=== PATIENT | male | born 1960 | race African-American/Black ===

== ENCOUNTER → 2016-10-24 | Day surgery (SDC) | payer BC ==
[2016-10-07 14:59] VITALS: Ht 180.3 cm; Wt 90.9 kg
[~2016-10-24] VITALS: Ht 180.3 cm; Wt 90.9 kg
[~2016-10-24] MED LIST: ALBU18002 INH; ASPCH81X PO; ASPI-589 PO; IOPAMIDOL INJ 61% 15 ML VIAL ONE; LIDOCAINE HCL 1% MPF 5 ML VIAL ONE; LOSA50TA6 PO; METO25TA56 PO; OMEP20TA PO; QVRINH40 INH; ROSU20TA PO; RXC5 PO; SODIUM CHLORIDE 0.9% INJ 10 ML VIAL ONE; TPRSR/25 PO
--- NOTE | 2016-10-24 12:58 | History & Physical Bridge - [place] ---
H&P Re-Evaluation Bridge Note: I have examined the patient, reviewed the History & Physical and in the interval since the performance of the History & Physical I have noted the following changes of clinical significance: No changes noted
--- NOTE | 2016-10-24 13:29 | Discharge Instructions ---
Discharge Instructions Date of Service Oct 24, 2016. Visit Reason for Visit: Lumbar Radiculopathy Discharge Discharge Diagnosis / Problem: right leg pain Discharge Goals Goal(s): Decrease discomfort, Improve function Medications Stopped Medications Name(s): Stopped aspirin 10/21/2016 Activity Recommendations Activity Limitations: resume your previous activity Anesthesia . Post Anesthesia Instructions: If you have had General Anesthesia or IV Sedation: * Do not drive today. * Resume driving when surgeon permits. * Do not make important decisions or sign legal documents today. * Call surgeon for: 1. Temperature elevations greater than 101 degrees F. 2. Uncontrollable pain. 3. Excessive bleeding. 4. Persistent nausea and vomiting. 5. Medication intolerance (nausea, vomiting or rash). * For nausea and vomiting use only clear liquids such as: tea, soda, bouillon until nausea subsides, then gradually increase diet as tolerated. * If you have any concerns or questions, call your surgeon's office. If physician is unavailable and it is an emergency, call 911 or go to the nearest emergency room. . Diet Recommendations Recommended Home Diet: resume previous diet Procedures Procedures Performed: Lumbar Epidural Steroid Injection Pending Studies Studies pending at discharge: no Medical Emergencies . Who to Call and When: Medical Emergencies: If at any time you feel your situation is an emergency, please call 911 immediately. . Non-Emergent Contact Non-Emergency issues call your: Specialist . . "Provider Documentation" section prepared by Yuri Marr.
[2016-10-24 13:34] VITALS: BP 120/68; PULSE 58; TEMP 36.8; O2SAT 96
--- NOTE | 2016-10-24 13:42 | OPERATIVE REPORT ---
DATE OF OPERATION: 10/24/2016 PREOPERATIVE DIAGNOSIS: Lumbar stenosis with a right L5 radiculopathy. POSTOPERATIVE DIAGNOSIS: Same. PROCEDURE: Right paramedian L5-S1 intralaminar epidural steroid injection under fluoroscopic guidance. INDICATIONS: The patient is a 56-year-old -[place]oven[place] male who presents today for a lumbar epidural steroid injection. He has responded favorably to the interlaminar approaches for a number of years. Most recently he had a caudal approach that was done because did not want to stop the antiplatelet therapy as he was less than 6 months out of significant heart attack, myocardial infarction, but noted that he got no improvement with the caudal. Now, he is greater than 6 months out and we will hold the aspirin for 3 days and do the back to the intralaminar approach, which has been historically successful for him. PHYSICAL EXAMINATION: Pleasant male seated comfortably. He has no tenderness to palpation of his lumbar paraspinal muscles. No issues with forward flexion or extension. Normal lower extremity strength. Negative seated straight leg raises. CONSENT: Verbal and written consent was obtained from the patient. Risks and benefits were reviewed. Risks include, but are not limited to epidural abscess, epidural hematoma, allergic reaction, dural puncture. The patient wishes to proceed. PROCEDURE: The patient was taken back to the special procedures room of [facility] where he was maintained in a prone position. Backside was cleansed with Betadine x3 and a dry sterile dressing was applied. Fluoroscope was used to identify the L5-S1 intralaminar space and overlying skin was anesthetized with a 25 gauge 1.5-inch needle with 4 mL of lidocaine 1%. He then underwent placement of a 22 gauge 3-1/2 inch Tuohy needle which was directed down towards the intralaminar space. It was advanced under lateral fluoroscopic guidance and loss of resistance was noted at a depth of 7 cm. Isovue-300 contrast 1 mL was injected in which demonstrated epidural uptake pattern. This was confirmed with both AP and lateral views. He then underwent injection after negative aspiration of 40 mg of Depo-Medrol and 4 mL of preservative free sodium chloride. Injection was well tolerated. DISPOSITION: 1. The patient was taken out into the discharge recovery area where he will be discharged home once discharge criteria have been met. 2. Follow up in the [facility] office in 2-4 weeks. I attest to the content of the Intraoperative Record and any orders documented therein. Any exceptio ns are noted below.
== END | disposition home or self-care (01) ==
LOC: X.SURG 12:09
PROVIDERS: ATTEND Physical Medicine & Rehabilitation
DX: M48.06 Spinal stenosis, lumbar region (principal); M54.16 Radiculopathy, lumbar region; Z79.82 Long term (current) use of aspirin

== ENCOUNTER → 2017-02-20 | Day surgery (SDC) | payer BC ==
[2017-01-30 15:33] VITALS: Ht 180.3 cm; Wt 90.9 kg
[~2017-02-20] VITALS: Ht 180.3 cm; Wt 90.9 kg
[~2017-02-20] MED LIST changes: -RXC5 PO
[2017-02-20 15:25] VITALS: TEMP 36.7
--- NOTE | 2017-02-20 15:26 | Discharge Instructions ---
Discharge Instructions Date of Service Feb 20, 2017. Visit Reason for Visit: Lumbar Radiculopathy Discharge Discharge Diagnosis / Problem: right leg pain Discharge Goals Goal(s): Decrease discomfort, Improve function Medications Stopped Medications Name(s): daily asa stopped 1 week ago. Activity Recommendations Activity Limitations: resume your previous activity Anesthesia . Post Anesthesia Instructions: If you have had General Anesthesia or IV Sedation: * Do not drive today. * Resume driving when surgeon permits. * Do not make important decisions or sign legal documents today. * Call surgeon for: 1. Temperature elevations greater than 101 degrees F. 2. Uncontrollable pain. 3. Excessive bleeding. 4. Persistent nausea and vomiting. 5. Medication intolerance (nausea, vomiting or rash). * For nausea and vomiting use only clear liquids such as: tea, soda, bouillon until nausea subsides, then gradually increase diet as tolerated. * If you have any concerns or questions, call your surgeon's office. If physician is unavailable and it is an emergency, call 911 or go to the nearest emergency room. . Diet Recommendations Recommended Home Diet: resume previous diet Procedures Procedures Performed: LUMBAR EPIDURAL STEROID INJECTION Pending Studies Studies pending at discharge: no Medical Emergencies . Who to Call and When: Medical Emergencies: If at any time you feel your situation is an emergency, please call 911 immediately. . Non-Emergent Contact Non-Emergency issues call your: Specialist . . "Provider Documentation" section prepared by Yuri Marr. .
[2017-02-20 15:31] VITALS: BP 115/77; PULSE 59; O2SAT 97
--- NOTE | 2017-02-21 07:08 | OPERATIVE REPORT ---
DATE OF OPERATION: 02/20/2017 PREOPERATIVE DIAGNOSIS: Lumbar stenosis with right L5 radiculopathy. POSTOPERATIVE DIAGNOSIS: Same. PROCEDURE: Right paramedian L5-S1 intralaminar epidural steroid injection under fluoroscopic guidance. INDICATIONS FOR PROCEDURE: The patient is a 56-year-old -Pakistani male who presents today for an epidural injection. He has received them in the past with good benefit. He presents today to address ongoing radicular pain down the right leg. PHYSICAL EXAMINATION: Pleasant male seated comfortably in no apparent distress. He has no focal weakness. Intact sensation. Negative seated straight leg raises. CONSENT: Verbal and written consent was obtained from the patient. Risks and benefits were reviewed. Risks include, but are not limited to epidural abscess, epidural hematoma, allergic reaction, and dural puncture. The patient wishes to proceed. DESCRIPTION OF PROCEDURE: The patient was taken back to the special procedures room of [facility], where he was maintained in a prone position. Backside was cleansed with Betadine x3 and a dry sterile dressing was applied. Fluoroscope was used to identify the L5-S1 intralaminar space and overlying skin on the right side was anesthetized with 4 mL of lidocaine 1% with a 25-gauge 1-1/2 inch needle. A 22-gauge 3-1/2 inch Tuohy needle was then directed down towards the intralaminar space. It was advanced under lateral fluoroscopic guidance and loss of resistance was noted at a depth of just over 7 cm. Isovue-300 contrast 1 mL was injected, which demonstrated epidural uptake pattern. He then underwent injection after negative aspiration of 40 mg of Depo-Medrol and 4 mL of preservative free sodium chloride. Injection was well tolerated. DISPOSITION: 1. The patient was taken out into the discharge recovery area, where he will be discharged home once discharge criteria have been met. 2. Follow up in the [facility] office in 2-4 weeks. I attest to the content of the Intraoperative Record and any orders documented therein. Any exception s are noted below.
== END | disposition home or self-care (01) ==
LOC: X.SURG 14:08
PROVIDERS: ATTEND Physical Medicine & Rehabilitation
DX: M48.06 Spinal stenosis, lumbar region (principal); M54.16 Radiculopathy, lumbar region

== ENCOUNTER 2017-10-17 10:38 | Emergency (ER) | payer BC ==
[~2017-10-17] VITALS: Ht 180.3 cm; Wt 102.6 kg
[~2017-10-17 10:38] MED LIST changes: -ASPCH81X PO; -IOPAMIDOL INJ 61% 15 ML VIAL ONE; -LIDOCAINE HCL 1% MPF 5 ML VIAL ONE; +RXC5 PO; -SODIUM CHLORIDE 0.9% INJ 10 ML VIAL ONE; -TPRSR/25 PO
[2017-10-17 10:39] VITALS: TEMP 36.7; Ht 180.3 cm; Wt 102.6 kg
[2017-10-17] MEDS ORDERED: OXYCODONE HCL IR 5 MG TAB (IMMEDIATE RELEASE) PO STA (10:51)
--- NOTE | 2017-10-17 11:27 | DIAGNOSTIC IMAGING REPORT ---
CERVICAL SPINE CT CT DOSE: 382.08 mGy.cm HISTORY: Fall, neck pain TECHNIQUE: Multiaxial CT images of the cervical spine were performed and reformatted in the sagittal and coronal plane without the use of contrast. A dose lowering technique was utilized adhering to the principles of ALARA. COMPARISON: None. FINDINGS: Straightening of the cervical spine. No fracture or subluxation. Anterior cervical discectomy and fusion at C3-C5 with a C4 corpectomy and bone graft. The hardware appears intact. Moderate facet osteoarthritis seen within the left C3-C5 facets and a right C6-C7 facets. Prevertebral soft tissues and the C1-C2 interval are intact. Moderate disc space narrowing at C5-C6 and severe disc space narrowing at C6-C7 with endplate osteophytes. There is moderate central canal narrowing at C6-C7 due to the disc osteophyte complex. IMPRESSION: 1. No fractures within the cervical spine. 2. Postoperative and degenerative changes as described above. Electronically signed by: Joe West M.D. 10/17/2017 11:26 AM Dictated Date/Time: 10/17/2017 11:17 AM
--- NOTE | 2017-10-17 11:58 | DIAGNOSTIC IMAGING REPORT ---
AP PELVIS AND RIGHT HIP 3 VIEWS CLINICAL HISTORY: Right hip pain status post trauma COMPARISON STUDY: No previous studies for comparison. FINDINGS: No fractures or dislocations are visualized. The joint space of each hip appears relatively well preserved for age. IMPRESSION: No fractures or dislocations identified. Electronically signed by: Leonid Chin M.D. 10/17/2017 11:57 AM Dictated Date/Time: 10/17/2017 11:57 AM
--- NOTE | 2017-10-17 12:05 | EMERGENCY ROOM VISIT NOTE ---
History First contact with patient: 10:45 Chief Complaint: NECK PAIN Stated Complaint: NECK PAIN, HIP PAIN History of Present Illness The patient is a 57 year old male who presents to the Emergency Room via private vehicle with complaints of "neck pain, hip pain". The patient states that this past Friday he was outside of his house, and slipped on the ice landing on his right hip. He notes pain as well in the neck. He rates the overall pain as a 9/10. He has a history of recent neck surgery. He states it is painful to walk. He denies any abdominal pain or chest pain. He notes some tingly sensation into the superior trapezius muscle within the right shoulder. He denies striking his head or head pain. Review of Systems A complete 6-point Review of Systems was discussed with the patient, with pertinent positives and negatives listed in the History of Present Illness. All remaining Review of Systems questions can be considered negative unless otherwise specified. Past Medical/Surgical History Medical Problems: (1) Back pain (2) Cervical stenosis of spinal canal (3) Chest pain Social History Smoking Status: Former Smoker Drug Use: none Marital Status: Housing Status: lives with family Occupation Status: disabled Current/Historical Medications Scheduled Aspirin (Aspirin Adult Low Dose), 81 MG PO QAM Beclomethasone Dip (Qvar), 1 PUFF INH HS Losartan Potassium (Cozaar), 50 MG PO QAM Metoprolol Tartrate (Lopressor) (Lopressor), 25 MG PO BID Omeprazole (Omeprazole), 20 MG PO QAM Rosuvastatin Calcium (Crestor), 20 MG PO QAM Scheduled PRN Albuterol Sulfate (Proair Respiclick), 1-2 PUFF INH DIRECTED PRN for Shortness of Breath Oxycodone Ir (Roxicodone Ir), 1-2 TAB PO Q4H PRN for Pain Physical Exam Vital Signs Date Time Temp Pulse Resp B/P (MAP) Pulse Ox O2 Delivery O2 Flow Rate FiO2 10/17/17 13:18 86 19 152/91 97 10/17/17 12:20 84 18 148/84 97 Room Air 10/17/17 10:39 36.7 78 18 174/97 96 Room Air Physical Exam VITAL SIGNS - Vital signs and nursing notes were reviewed. Stable. GENERAL - 57-year-old male appearing his stated age who is in no acute distress. Communicates well with provider and answers questions appropriately. SKIN - Without rashes. No breaks in integument. HEAD - NC/AT. EYES - Sclera anicteric. EARS - No deformities of external structures noted on gross examination bilaterally. NOSE - Midline and without cyanosis. No epistaxis or purulent drainage noted. MOUTH/OROPHARYNX - Without perioral cyanosis. NECK - Neck with limited range of motion secondary to pain. There is direct C- spine tenderness and right paraspinous musculature tenderness. EXTREMITIES - No clubbing or peripheral cyanosis. No pretibial edema present. There is tenderness palpation overlying the right superior trapezius muscle. Also direct right greater trochanter tenderness. +5/5 strength noted in UE/LE bilaterally. NEUROLOGIC - Cranial nerves II through XII grossly intact. Sensory intact to light touch throughout. PSYCH - A&O, and cooperates fully with examiner. Pt is very pleasant and interacts well with examiner. Medical Decision & Procedures ER Provider Diagnostic Interpretation: AP PELVIS AND RIGHT HIP 3 VIEWS CLINICAL HISTORY: Right hip pain status post trauma COMPARISON STUDY: No previous studies for comparison. FINDINGS: No fractures or dislocations are visualized. The joint space of each hip appears relatively well preserved for age. IMPRESSION: No fractures or dislocations identified. Electronically signed by: Leonid Chin M.D. 10/17/2017 11:57 AM Dictated Date/Time: 10/17/2017 11:[address] DOSE: 382.08 mGy.cm HISTORY: Fall, neck pain TECHNIQUE: Multiaxial CT images of the cervical spine were performed and reformatted in the sagittal and coronal plane without the use of contrast. A dose lowering technique was utilized adhering to the principles of ALARA. COMPARISON: None. FINDINGS: Straightening of the cervical spine. No fracture or subluxation. Anterior cervical discectomy and fusion at C3-C5 with a C4 corpectomy and bone graft. The hardware appears intact. Moderate facet osteoarthritis seen within the left C3-C5 facets and a right C6-C7 facets. Prevertebral soft tissues and the C1-C2 interval are intact. Moderate disc space narrowing at C5-C6 and severe disc space narrowing at C6-C7 with endplate osteophytes. There is moderate central canal narrowing at C6-C7 due to the disc osteophyte complex. IMPRESSION: 1. No fractures within the cervical spine. 2. Postoperative and degenerative changes as described above. Electronically signed by: Joe West M.D. 10/17/2017 11:26 AM Dictated Date/Time: 10/17/2017 11:17 AM Medications Administered Medications (Trade) Dose Ordered Sig/Roney Route Start Time Stop Time Status Last Admin Dose Admin Oxycodone HCl (Roxicodone Immediate Rel Tab) 5 mg NOW STAT PO 10/17/17 10:51 10/17/17 10:52 DC 10/17/17 10:57 5 MG Medical Decision Patient was seen and evaluated as above. He presents to us today status post fall. He has neck pain and right hip pain. Review was performed of nursing notes and vital signs. After obtaining a thorough history and physical examination the above work up was performed. He was given oxycodone for pain, and CT scan was performed of his C-spine and x-ray of the right hip. Results as above. No acute fracture or dislocation. He was informed upon the results as we went through these together. I suspect contusion of these regions. He is to wear his C-spine collar at home and follow with his family doctor as well as orthopedic specialist. He is to return with worsening. Small prescription was given of oxycodone for pain and no red flags were identified in the [place] drug monitoring system. The patient was educated upon management, had questions answered prior to discharge, and was discharged home in good condition. In the evaluation and treatment of this patient, the following differential diagnoses were considered: Musculoskeletal Strain, Discitis, Cervical Spine Fracture, Cervical Spine Dislocation, Cervical Spine Subluxation, Cervical Spondylosis, Fibromyalgia, Osteoarthritis, Polymyalgia Rheumatica, Psychogenic Pain Disorder, Tumor of Soft Tissue or Spine, Hip Fracture, Hip Dislocation, Greater Trochanteric Bursitis, Musculoskeletal Pain, Lumbar Radiculopathy. Impression Primary Impression: Fall Additional Impressions: Hip pain, right Neck pain Departure Information Dispostion Home / Self-Care Condition GOOD Prescriptions Oxycodone Ir (Roxicodone Ir) 5 Mg Tab 1-2 TAB PO Q4H Y for Pain, #15 TAB For Initial Treatment Prov: Houston Cedillo PA-C 10/17/17 Referrals Jagdish Lopez M.D. (PCP) Patient Instructions My [facility] Additional Instructions You have been treated in the Emergency Department for Hip Pain and neck pain. You have received pain medicine in the emergency department which impairs your ability to operate a vehicle. It is illegal for you to drive after receiving these medicines. You have been prescribed Oxy IR to be used for pain control. This is a narcotic medication. You cannot drive or consume alcohol while on this medicine. This medicine should only be used for pain that cannot be controlled with over-the- counter pain medicines. For pain control, you can use the following [id number] medicines: - Regular strength (325mg/tab) Tylenol (acetaminophen) 2 tabs every 4-6 hours as needed. Do not exceed 12 tablets in a 24 hour period. Avoid taking more than 3 grams (3000 mg) of Tylenol per day. This includes any other sources of acetaminophen you may take on a regular basis. - Regular strength (200 mg/tab) Advil (ibuprofen) 1-2 tabs every 4-6 hours as needed. Do not exceed a dose of 3200 mg per day. If this is a recent injury (<24 hrs), ice can be applied to the area of pain for the first 3 days to help decrease pain and inflammation. Ice massages can be performed by freezing water in a paper cup, peeling back the cup to expose the ice and then massaging over the affected area. Return to the Emergency Department if your current symptoms worsen despite treatment course outlined above. Problem Qualifiers
[2017-10-17] MEDS ORDERED: OXYC1TAB3 PO (13:10)
[2017-10-17 13:18] VITALS: BP 152/91; PULSE 86; O2SAT 97
== END 2017-10-17 13:19 | disposition home or self-care (01) ==
LOC: C.EDB 10:41 → C.EDD 13:19
DX: M54.2 Cervicalgia (principal); M25.551 Pain in right hip; W00.0XXA Fall on same level due to ice and snow, initial encounter; M48.02 Spinal stenosis, cervical region; Z98.890 Other specified postprocedural states; Z87.891 Personal history of nicotine dependence; Z79.82 Long term (current) use of aspirin

== ENCOUNTER → 2017-10-30 | Day surgery (SDC) | payer BC ==
[2017-10-27 11:19] VITALS: Ht 180.3 cm; Wt 100.0 kg
[~2017-10-30] VITALS: Ht 180.3 cm; Wt 100.0 kg
[~2017-10-30] MED LIST changes: +IOPAMIDOL INJ 61% 15 ML VIAL ONE; +LIDOCAINE HCL 1% MPF 5 ML VIAL ONE; +OXYC1TAB3 PO; -RXC5 PO; +SODIUM CHLORIDE 0.9% INJ 10 ML VIAL ONE
--- NOTE | 2017-10-30 14:24 | [facility] Post Operative Brief Note ---
Immediate Operative Summary Operative Date Oct 30, 2017. Pre-Operative Diagnosis LUMBAR SPINAL STENOSIS W/ RIGHT CHRONIC LOWER EXTREMITY RADICULOPATHY. Post-Operative Diagnosis SAME Procedure(s) Performed LUMBAR/ CAUDAL EPIDURAL STEROID INJECTION Surgeon DR. Rogelio MARC Program Evaluation Consultant Surgeon(s) None Estimated Blood Loss 0 Findings Consistent with Post-Op Diagnosis Specimens NA Drains None Anesthesia Type Local Complication(s) none Disposition Disposition:
[2017-10-30 14:25] VITALS: TEMP 37
--- NOTE | 2017-10-30 14:26 | Discharge Instructions ---
Discharge Instructions Date of Service Oct 30, 2017. Visit Reason for Visit: Lumbar Spinal Stenosis With Chronic Right Lower Ex Discharge Discharge Diagnosis / Problem: Right leg pain Discharge Goals Goal(s): Decrease discomfort, Improve function Medications Stopped Medications Name(s): motrin stopped 10-27-17 Activity Recommendations Activity Limitations: resume your previous activity Anesthesia . Post Anesthesia Instructions: If you have had General Anesthesia or IV Sedation: * Do not drive today. * Resume driving when surgeon permits. * Do not make important decisions or sign legal documents today. * Call surgeon for: 1. Temperature elevations greater than 101 degrees F. 2. Uncontrollable pain. 3. Excessive bleeding. 4. Persistent nausea and vomiting. 5. Medication intolerance (nausea, vomiting or rash). * For nausea and vomiting use only clear liquids such as: tea, soda, bouillon until nausea subsides, then gradually increase diet as tolerated. * If you have any concerns or questions, call your surgeon's office. If physician is unavailable and it is an emergency, call 911 or go to the nearest emergency room. . Diet Recommendations Recommended Home Diet: resume previous diet Procedures Procedures Performed: LUMBAR/ CAUDAL EPIDURAL STEROID INJECTION Pending Studies Studies pending at discharge: no Medical Emergencies . Who to Call and When: Medical Emergencies: If at any time you feel your situation is an emergency, please call 911 immediately. . Non-Emergent Contact Non-Emergency issues call your: Specialist . . "Provider Documentation" section prepared by Yuri Marr. .
[2017-10-30 14:45] VITALS: BP 142/91; PULSE 62; O2SAT 95
--- NOTE | 2017-10-30 18:56 | OPERATIVE REPORT ---
DATE OF OPERATION: 10/30/2017 PREOPERATIVE DIAGNOSIS: Lumbar spinal stenosis with chronic L5 radiculopathy. POSTOPERATIVE DIAGNOSIS: Same. PROCEDURE: Caudal epidural steroid injection under fluoroscopic guidance. INDICATIONS: The patient is a 57-year-old -[place]is[place] male who receives epidurals with good results. His last one was January 2017. He is having an increasing radicular pain. He presents today for an epidural. Unfortunately, he did not stop his Advil and decision will be made via caudal approach today because of potential bleeding effects. PHYSICAL EXAMINATION: Pleasant male seated comfortably. Lower extremities were examined. He had normal lower extremity strength, some pain inhibition with straight leg testing of his right lower extremity, intact sensation t L4 decreased at L5 and intact at S1. CONSENT: Verbal and written consent was obtained from the patient. Risks and benefits were reviewed. Risks include but are not limited to epidural abscess, epidural hematoma, allergic reaction, dural puncture. The patient wishes to proceed. DESCRIPTION OF PROCEDURE: The patient was taken back to the special procedures room of the [facility] where he was maintained in a prone position. Backside was cleansed with Betadine x3 and a dry sterile dressing was applied. Fluoroscope was used to identify the sacral canal and the sacral hiatus space and overlying skin was anesthetized with 4 mL of lidocaine 1% with 25 gauge 1.5-inch needle. A 25 gauge 3.5 inch spinal needle was then directed into the sacral hiatus area. It was advanced until it entered the sacral canal. It was advanced and a total of an inch into the canal. He then underwent injection after negative aspiration of 40 mg of Depo-Medrol, 4 mL of preservative free sodium chloride. Injection was well tolerated. DISPOSITION: 1. He was taken out into the discharge recovery area where he will be discharged home once discharge criteria are met. 2. Follow up in the [facility] office in 4 weeks' time. I attest to the content of the Intraoperative Record and any orders documented therein. Any exception s are noted below.
== END | disposition home or self-care (01) ==
LOC: X.SURG 13:20
PROVIDERS: ATTEND Physical Medicine & Rehabilitation
DX: M48.061 Spinal stenosis, lumbar region without neurogenic claudication (principal); M54.16 Radiculopathy, lumbar region; Z88.6 Allergy status to analgesic agent; Z79.899 Other long term (current) drug therapy

== ENCOUNTER → 2018-02-26 | Day surgery (SDC) | payer BC ==
[2018-02-25 16:08] VITALS: Ht 180.3 cm; Wt 100.0 kg
[~2018-02-26] VITALS: Ht 180.3 cm; Wt 100.0 kg
[~2018-02-26] MED LIST changes: +BECL80AE6 INH; +OXYC-90 PO; -OXYC1TAB3 PO; -QVRINH40 INH
--- NOTE | 2018-02-26 13:13 | [facility] Post Operative Brief Note ---
Immediate Operative Summary Operative Date Feb 26, 2018. Pre-Operative Diagnosis Lumbar stenosis with right lower extremity radiculpathy Post-Operative Diagnosis Same Procedure(s) Performed Caudal Epidural Steroid Injection Surgeon Dr Marr [employer]ener Surgeon(s) None Estimated Blood Loss 0 Findings Consistent with Post-Op Diagnosis Specimens NA Drains None Anesthesia Type Local Complication(s) none Disposition Disposition:
--- NOTE | 2018-02-26 13:14 | Discharge Instructions ---
Discharge Instructions Date of Service Feb 26, 2018. Visit Reason for Visit: Lumbar Radiculopathy, Spinal Stenosis Discharge Discharge Diagnosis / Problem: Right leg pain Discharge Goals Goal(s): Decrease discomfort, Improve function Medications Stopped Medications Name(s): aspirin stopped 02/24 Activity Recommendations Activity Limitations: resume your previous activity Anesthesia . Post Anesthesia Instructions: If you have had General Anesthesia or IV Sedation: * Do not drive today. * Resume driving when surgeon permits. * Do not make important decisions or sign legal documents today. * Call surgeon for: 1. Temperature elevations greater than 101 degrees F. 2. Uncontrollable pain. 3. Excessive bleeding. 4. Persistent nausea and vomiting. 5. Medication intolerance (nausea, vomiting or rash). * For nausea and vomiting use only clear liquids such as: tea, soda, bouillon until nausea subsides, then gradually increase diet as tolerated. * If you have any concerns or questions, call your surgeon's office. If physician is unavailable and it is an emergency, call 911 or go to the nearest emergency room. . Diet Recommendations Recommended Home Diet: resume previous diet Procedures Procedures Performed: Caudal Epidural Steroid Injection Pending Studies Studies pending at discharge: no Medical Emergencies . Who to Call and When: Medical Emergencies: If at any time you feel your situation is an emergency, please call 911 immediately. . Non-Emergent Contact Non-Emergency issues call your: Specialist . . "Provider Documentation" section prepared by Yuri Marr. .
[2018-02-26 13:15] VITALS: TEMP 36.3
[2018-02-26 13:29] VITALS: BP 123/82; PULSE 55; O2SAT 95
--- NOTE | 2018-02-26 14:45 | OPERATIVE REPORT ---
DATE OF OPERATION: 02/26/2018 PREOPERATIVE DIAGNOSIS: Lumbar stenosis with right lower extremity radiculopathy. POSTOPERATIVE DIAGNOSIS: Lumbar stenosis with right lower extremity radiculopathy. PROCEDURE: Caudal epidural steroid injection under fluoroscopic guidance. INDICATIONS: The patient is a 57-year-old -[place] male who has received epidural injections with great results. Last one was more than 4 months ago. He presents today for another injection to help him with relief of pain. They typically get about 80% efficacy and he was given via the caudal route the last time and that will be the approach today as he took anti-inflammatories daily and today. PHYSICAL EXAMINATION: GENERAL: Pleasant male seated comfortably. MUSCULOSKELETAL: Lumbar paraspinal muscles were palpated. He had negative seated straight leg raise. He has intact sensation distally at the L4, L5, S1 dermatomes. CONSENT: Verbal and written consent was obtained from the patient. Risks and benefits were reviewed. Risks include but are not limited to epidural abscess and allergic reaction. The patient wishes to proceed. DESCRIPTION OF PROCEDURE: The patient was taken back to the special procedures room of [facility]. He was maintained in a prone position. Backside was cleansed with Betadine x3 and a dry sterile dressing was applied. Fluoroscope was used to identify the sacral hiatus and overlying skin was anesthetized with 5 mL of lidocaine 1% with 25-gauge 1.5-inch needle. A 25-gauge 3.5-inch spinal needle was then directed 1/2 inch into the canal. He then underwent injection after negative aspiration with 40 mg of Depo-Medrol and 4 mL of preservative-free sodium chloride. Injection was well tolerated. DISPOSITION: The patient was taken out into the discharge recovery area where he will be discharged home once discharge criteria have been met. Follow up in the [facility] office in 4 weeks' time. I attest to the content of the Intraoperative Record and any orders documented therein. Any exception s are noted below.
== END | disposition home or self-care (01) ==
LOC: X.SURG 12:11
PROVIDERS: ATTEND Physical Medicine & Rehabilitation
DX: M48.061 Spinal stenosis, lumbar region without neurogenic claudication (principal); M54.16 Radiculopathy, lumbar region; Z79.82 Long term (current) use of aspirin; Z79.899 Other long term (current) drug therapy

== ENCOUNTER 2024-04-28 06:07 | Observation (INO) ==
--- NOTE | 2024-03-30 13:24 | PAT Medication Instructions ---
Medication Instructions Date of Service March 30, 2024 Home Medications Medication Instructions Recorded guaifenesin 600 mg tablet, 600 mg PO BID PRN congestion #60 10/30/20 extended release 12 hr (Mucinex) tabs levocetirizine 5 mg tablet 5 mg PO DAILY PRN allergy symptoms 10/30/20 #30 tabs albuterol sulfate 90 mcg/actuation 2 puff inhalation Q6H PRN 02/06/21 aerosol inhaler (Ventolin HFA) Shortness Of Breath Or Wheezing #18 grams fluticasone fur. 100 mcg-umeclid 1 inh inhalation QAM #3 Inhalers 12/08/23 62.5 mcg-vilant 25 mcg inhalat.powder (Trelegy Ellipta) montelukast 10 mg tablet 10 mg PO QAM #90 tabs 01/05/24 (Singulair) losartan 50 mg tablet 50 mg PO QAM #90 tabs 01/06/24 rosuvastatin 20 mg tablet 20 mg PO QAM #90 tabs 01/06/24 Medication List: aspirin 81 mg tablet,delayed release 81 mg PO QAM guaifenesin 600 mg tablet, extended release 12 hr (Mucinex) 600 mg PO BID PRN congestion levocetirizine 5 mg tablet 5 mg PO DAILY PRN allergy symptoms albuterol sulfate 90 mcg/actuation aerosol inhaler (Ventolin HFA) 2 puff inhalation Q6H PRN Shortness Of Breath Or Wheezing cyclobenzaprine 5 mg tablet 5 mg PO DAILY PRN Neck Muscle Spasm metoprolol tartrate 100 mg tablet 100 mg PO QAM insulin glargine 100 unit/mL (3 mL) subcutaneous pen (Carolyn Fox U-100 Insulin) 8 unit subcut QAM fluticasone fur. 100 mcg-umeclid 62.5 mcg-vilant 25 mcg inhalat.powder (Trelegy Ellipta) 1 inh inhalation QAM montelukast 10 mg tablet (Singulair) 10 mg PO QAM losartan 50 mg tablet 50 mg PO QAM rosuvastatin 20 mg tablet 20 mg PO QAM ascorbic acid (vitamin C) 1,000 mg tablet (Vitamin C) 1 g PO QAM cholecalciferol (vitamin D3) 25 mcg (1,000 unit) tablet (Vitamin D3) 25 mcg PO QAM docusate sodium 100 mg tablet (Stool Softener) 100 mg PO QAM gabapentin 300 mg capsule 300 mg PO TID omeprazole 40 mg capsule,delayed release 40 mg PO QAM MEDICATION INSTRUCTIONS: Continue as directed albuterol sulfate 90 mcg/actuation aerosol inhaler (Ventolin HFA) 2 puff inhalation Q6H PRN Shortness Of Breath Or Wheezing (use if needed; BRING TO HOSPITAL) fluticasone fur. 100 mcg-umeclid 62.5 mcg-vilant 25 mcg inhalat.powder (Trelegy Ellipta) 1 inh inhalation QAM ASK your prescriber and surgeon aspirin 81 mg tablet,delayed release 81 mg PO QAM DO NOT take the morning of surgery levocetirizine 5 mg tablet 5 mg PO DAILY PRN allergy symptoms losartan 50 mg tablet 50 mg PO QAM ascorbic acid (vitamin C) 1,000 mg tablet (Vitamin C) 1 g PO QAM cholecalciferol (vitamin D3) 25 mcg (1,000 unit) tablet (Vitamin D3) 25 mcg PO QAM docusate sodium 100 mg tablet (Stool Softener) 100 mg PO QAM guaifenesin 600 mg tablet, extended release 12 hr (Mucinex) 600 mg PO BID PRN congestion Take morning of surgery With a small sip of water, OTHERWISE NOTHING TO EAT OR DRINK AFTER MIDNIGHT: rosuvastatin 20 mg tablet 20 mg PO QAM montelukast 10 mg tablet (Singulair) 10 mg PO QAM metoprolol tartrate 100 mg tablet 100 mg PO QAM omeprazole 40 mg capsule,delayed release 40 mg PO QAM cyclobenzaprine 5 mg tablet 5 mg PO DAILY PRN Neck Muscle Spasm gabapentin 300 mg capsule 300 mg PO TID Take evening before surgery cyclobenzaprine 5 mg tablet 5 mg PO DAILY PRN Neck Muscle Spasm gabapentin 300 mg capsule 300 mg PO TID guaifenesin 600 mg tablet, extended release 12 hr (Mucinex) 600 mg PO BID PRN congestion Insulin Dependent Diabetic Patients * Test your blood sugar the morning of surgery. * If Blood Sugar is GREATER THAN 150, take HALF of your regular dose of: insulin glargine 100 unit/mL (3 mL) subcutaneous pen (Basaglar KwikPen U-100 Insulin) 8 unit subcut QAM * If Blood Sugar is LESS THAN 150, DO NOT TAKE ANY: insulin glargine 100 unit/mL (3 mL) subcutaneous pen (Basaglar KwikPen U-100 Insulin) 8 unit subcut QAM Other Notes If you have any questions please call us at [phone] or [phone] or [phone] or [phone]
--- NOTE | 2024-04-07 09:45 | Anesthesiology Consultation ---
Date of Service April 07, 2024 Assessment & Plan (1) Encounter for pre-operative examination: - Check BSG AM DOS - Infectious disease screening: Per assessment on 04/07/24: No known recent infectious disease contacts or current infectious disease symptoms. - Patient acceptable risk for surgery pending surgeon-ordered PCP ([facility]/Dr. Kenan Viveros, 04/12) and cardiology (KAREEM, 04/16) preop evaluations. Chart Review Chart Review: Patient seen in Pre Admission Testing Teaching & Discussion Pre-Anesthesia Teaching/Discussion Notes: Instructed NPO after midnight before surgery,except medications with 15 cc of water. Medication instructions provided according to the PAT guidelines. History Surgery Operation Date: 04/26/24 07:45 Proposed Procedures p C5-C7 Anterior Cervical Discectomy and Fusion - Yuri Ann DO Height/Weight Height: 5 ft 11 in Weight: 92.2 kg Allergies Allergy/AdvReac Type Severity Reaction Status Date / Time latex Allergy Intermediate Ear Verified 03/30/24 09:28 swelling, eye redness amoxicillin AdvReac Mild Nausea/Vomi Verified 03/30/24 09:28 ting hydrocodone AdvReac Mild Nausea/Vomi Verified 03/30/24 09:28 ting Medications Home Medications Medication Instructions Recorded Confirmed Last Taken aspirin 81 mg tablet,delayed 81 mg PO QAM #30 tabs 04/07/19 03/30/24 05/30/22 release guaifenesin 600 mg tablet, 600 mg PO BID PRN congestion #60 10/30/20 03/30/24 10/07/21 extended release 12 hr (Mucinex) tabs levocetirizine 5 mg tablet 5 mg PO DAILY PRN allergy symptoms 10/30/20 03/30/24 10/07/21 #30 tabs albuterol sulfate 90 mcg/actuation 2 puff inhalation Q6H PRN 02/06/21 03/30/24 10/07/21 aerosol inhaler (Ventolin HFA) Shortness Of Breath Or Wheezing #18 grams cyclobenzaprine 5 mg tablet 5 mg PO DAILY PRN Neck Muscle Spasm 04/03/23 03/30/24 Unknown metoprolol tartrate 100 mg tablet 100 mg PO QAM 04/03/23 03/30/24 Unknown insulin glargine 100 unit/mL (3 8 unit subcut QAM 05/09/23 03/30/24 Unknown mL) subcutaneous pen (Basaglar KwikPen U-100 Insulin) fluticasone fur. 100 mcg-umeclid 1 inh inhalation QAM #3 Inhalers 12/08/23 03/30/24 Unknown 62.5 mcg-vilant 25 mcg inhalat.powder (Trelegy Ellipta) montelukast 10 mg tablet 10 mg PO QAM #90 tabs 01/05/24 03/30/24 Unknown (Singulair) losartan 50 mg tablet 50 mg PO QAM #90 tabs 01/06/24 03/30/24 Unknown rosuvastatin 20 mg tablet 20 mg PO QAM #90 tabs 01/06/24 03/30/24 Unknown ascorbic acid (vitamin C) 1,000 mg 1 g PO QAM 03/30/24 03/30/24 Unknown tablet (Vitamin C) cholecalciferol (vitamin D3) 25 25 mcg PO QAM 03/30/24 03/30/24 Unknown mcg (1,000 unit) tablet (Vitamin D3) docusate sodium 100 mg tablet 100 mg PO QAM 03/30/24 03/30/24 Unknown (Stool Softener) gabapentin 300 mg capsule 300 mg PO TID 03/30/24 03/30/24 Unknown omeprazole 40 mg capsule,delayed 40 mg PO QAM 03/30/24 03/30/24 Unknown release Past Medical History Medical History Asthma-COPD overlap syndrome CAD (coronary artery disease) CABG x4 (2015) Chronic back pain Chronic obstructive pulmonary disease Degenerative disc disease Diverticular disease Per records, patient denies Dry eyes, bilateral GERD (gastroesophageal reflux disease) History of COVID-19 03/05/2024 - positive home 03/13/2024 - negative HTN (hypertension) Hx of gout Hyperlipidemia Per records Insulin dependent type 2 diabetes mellitus Myocardial Infarction NSTEMI CABG x4 (2015) Follows with Dr. Madden Osteoarthritis Right lumbar radiculopathy Sleep apnea No device Spinal stenosis Xerostomia "Dry Mouth" Exercise / Class Metabolic Activity II 4-5 Yardwork/Stairs/Walk up hill (one FS: No CP, no SOB) Past Family History Family History Brother Family history of diabetes mellitus Other Allergies Asthma Diabetes Heart disease No family history of adverse response to anesthesia Denies family history of Tuberculosis Emphysema, unspecified Lung disease Cancer Past Surgical History Surgical History Fusion of spine C4-6 (2018), "ROM limited" History of cardiac cath 2016 > CABG 2000- no stents History of colonoscopy History of coronary artery bypass graft CABG x4 (2016) History of esophagogastroduodenoscopy (EGD) History of tooth extraction S/P epidural steroid injection Ambika - Dr. Marr Past Anesthesia History No Hx of Anesthesia Complications and No Family Hx of Anesthesia Complications History of PONV No Hx of PONV and No Hx of Motion Sickness Social History Smoking Status: Current every day smoker tobacco type: cigarettes Smoking cigarettes per day: 5 cigs/day Do You Dip or Chew Tobacco: No Hx Alcohol Use: No Hx Substance Use: No substance use type: does not use Review of Systems Patient denies chest pain, shortness of breath, dyspnea on exertion, fever, chills, cough, wheezing, palpitations. Physical Exam Vital Signs BP 110/73 P 60 TEMP 98.3 SP02 96%RA RESP 16 Physical Mildly decreased cervical extension range of motion. Full TMJ range of motion. TMD 3 finger breaths Mallampati Score III Dentition: upper front right dental hinduism, missing sides Lungs: clear throughout to auscultation Cardiac: regular rate and rhythm, no murmurs noted Spine: normal Carotid arteries: negative bruit Extremities: no LE edema Lab Results Anesthesia Preop Results Results Anesthesia Widget: WBC 13.73 K/ul (4.8-10.8) H 04/07/24 Hgb 16.3 g/dl (14.0-18.0) 04/07/24 Hct 47.7 % (42.0-52.0) 04/07/24 Plt 228 K/uL (130-400) 04/07/24 Na 139 mmol/L (136-145) 04/07/24 K 4.2 mmol/L (3.5-5.1) 04/07/24 Cl 104 mmol/L (98-107) 04/07/24 CO2 28 mmol/L (21-32) 04/07/24 BUN 17 mg/dl (6-23) 04/07/24 Creat 0.97 mg/dl (0.6-1.4) 04/07/24 Glucose Level 103 mg/dl (70-99(Fasting)) H 04/07/24 PT 10.9 Seconds (9.0-12.0) 04/07/24 PTT 29 Seconds (21-31) 04/07/24 INR 1.0 (0.9-1.1) 04/07/24 HA1c 5.9 % (4.5-5.6) H 04/07/24 Urine Color Yellow 04/07/24 Urine Appearance Clear (Clear) 04/07/24 Urine pH 6.0 (4.5-7.5) 04/07/24 Urine Specific [place] 1.017 (1.000-1.030) 04/07/24 Urine Protein Negative (Negative) 04/07/24 Urine Glucose (UA) Negative (Negative) 04/07/24 Urine Ketones Negative (Negative) 04/07/24 Urine Blood Negative (Negative) 04/07/24 Urine Nitrite Negative (Negative) 04/07/24 Urine Bilirubin Negative (Negative) 04/07/24 Urine Urobilinogen Negative (Negative) 04/07/24 Urine Leukocyte Esterase Negative (Negative) 04/07/24 Blood Type O Positive 04/07/24 Antibody Screen NEGATIVE 04/07/24 Testing Laboratory Results Elevated WBC- surgeon's office made aware* Electrocardiogram Date: 04/07/24 SR with PACs in pattern of bigeminy. 63bpm. Rightward axis. NS TWA. Echocardiogram Date: 04/08/23 LVEF 50-55%. Abnormal septal motion consistent with post-operative state. Mild RVD with mildly reduced RV function Trace AR. Mild cLVH. Normal LV size. Mild LAD/RAD. Mild cLVH. Other Testing Chest CT Date: 09/04/23 Mild emphysema. There is mild scarring/atelectasis seen at both lung bases. Low suspicion foci of pleural-based nodularity in the right lung along the major fissure are unchanged and significance. No new or enlarging pulmonary lesion is identified. There is no airspace consolidation or pleural effusion. There is atherosclerotic calcification of the thoracic aorta, which is normal in caliber and demonstrates standard 3 vessel arch anatomy. The patient is status post midline sternotomy. The heart is top normal in size and without pericardial effusion. The coronary arteries are densely calcified.
[2024-04-28] MEDS: LR 15ML/HR IV SCH (06:41)
[2024-04-28] MEDS: LR 60ML/HR IV SCH (06:43)
[2024-04-28] MEDS: GABAPENTIN 300 MG CAP PO SCH ×2 (06:45→13:09)
[2024-04-28] MEDS: CeleBREX 200 MG CAP PO SCH (06:45)
[2024-04-28] MEDS ORDERED: LIDOCAINE 2% 20 MG/ML 5 ML SYR IV ONE (06:56)
[2024-04-28] MEDS ORDERED: PROPOFOL IV EMULSION 10 MG/ML 20 ML VIAL IV ONE (06:56)
[2024-04-28] MEDS ORDERED: LIDOCAINE 2% 2 ML VIAL/AMP(20MG/ML) INFIL ONE (06:57)
[2024-04-28] MEDS ORDERED: fentaNYL citrate PF 100 MCG/2 ML VIAL ONE ×2 (06:59→08:28)
[2024-04-28] MEDS ORDERED: MIDAZOLAM HCL 1 MG/ML 2ML VIAL ONE (06:59)
[2024-04-28] MEDS ORDERED: DEXAMETHASONE SOD INJ 4 MG/ML VIAL ONE (06:59)
[2024-04-28] MEDS ORDERED: ATROPINE SULFATE 0.1 MG/ML 10ML SYR IV PRN (07:37)
[2024-04-28] MEDS ORDERED: ePHEDrine sulfate 50 MG/ML AMP IV PRN (07:37)
--- NOTE | 2024-04-28 07:43 | History & Physical Bridge Note ---
Date of Service April 28, 2024 History & Physical Bridge Note I have examined the patient, reviewed the History & Physical and in the interval since the performance of the History & Physical I have noted the following changes of clinical significance: no changes noted
--- NOTE | 2024-04-28 07:44 | History & Physical Report ---
Date of Service April 28, 2024 Assessment & Plan (1) Cervical radiculopathy: Plan: C5-C7 anterior cervical discectomy and fusion hardware removal C3-C5 History of Present Illness Chief Complaint: Neck and arm pain Primary Care Provider: Kenan Viveros MD This is a 63-year-old male with residual chronic persistent neck and arm pain after failing course of nonoperative care is here for surgical invention. Allergies Allergy/AdvReac Type Severity Reaction Status Date / Time latex Allergy Intermediate Ear Verified 04/28/24 06:38 swelling, eye redness amoxicillin AdvReac Mild Nausea/Vomi Verified 04/28/24 06:38 ting hydrocodone AdvReac Mild Nausea/Vomi Verified 04/28/24 06:38 ting Home Medications Medication Instructions Recorded Confirmed Type aspirin 81 mg tablet,delayed 81 mg PO QAM #30 tabs 04/07/19 04/28/24 History release guaifenesin 600 mg tablet, 600 mg PO BID PRN congestion #60 10/30/20 04/28/24 Rx extended release 12 hr (Mucinex) tabs albuterol sulfate 90 mcg/actuation 2 puff inhalation Q6H PRN 02/06/21 04/28/24 Rx aerosol inhaler (Ventolin HFA) Shortness Of Breath Or Wheezing #18 grams cyclobenzaprine 5 mg tablet 5 mg PO DAILY PRN Neck Muscle Spasm 04/03/23 04/28/24 History metoprolol tartrate 100 mg tablet 100 mg PO QAM 04/03/23 04/28/24 History insulin glargine 100 unit/mL (3 8 unit subcut QAM 05/09/23 04/28/24 History mL) subcutaneous pen (Basaglar KwikPen U-100 Insulin) montelukast 10 mg tablet 10 mg PO QAM #90 tabs 01/05/24 04/28/24 Rx (Singulair) losartan 50 mg tablet 50 mg PO QAM #90 tabs 01/06/24 04/28/24 Rx rosuvastatin 20 mg tablet 20 mg PO QAM #90 tabs 01/06/24 04/28/24 Rx ascorbic acid (vitamin C) 1,000 mg 1 g PO QAM 03/30/24 04/28/24 History tablet (Vitamin C) cholecalciferol (vitamin D3) 25 25 mcg PO QAM 03/30/24 04/28/24 History mcg (1,000 unit) tablet (Vitamin D3) docusate sodium 100 mg tablet 100 mg PO QAM 03/30/24 04/28/24 History (Stool Softener) gabapentin 300 mg capsule 300 mg PO TID 03/30/24 04/28/24 History omeprazole 40 mg capsule,delayed 40 mg PO QAM 03/30/24 04/28/24 History release fluticasone fur. 100 mcg-umeclid 1 inh inhalation QAM #1 inhaler 04/12/24 04/28/24 Rx 62.5 mcg-vilant 25 mcg inhalat.powder (Trelegy Ellipta) levocetirizine 5 mg tablet (Xyzal) 5 mg PO DAILY PRN allergy symptoms 04/28/24 04/28/24 History Past Med/Surg History Problem List (Updated 04/28/24 @ 06:38 by Esme Hernández, DEVON) HTN (hypertension) CAD (coronary artery disease) CABG x4 (2015) Cervical radiculopathy Tinnitus of left ear Vertigo Sensorineural hearing loss (SNHL) of left ear Dysfunction of left eustachian tube Encounter for pre-operative examination Coronary artery disease Seasonal allergies Renal insufficiency Hyperlipidemia Per records Cervical stenosis of spinal canal Medical History (Updated 04/28/24 @ 06:38 by Esme Hernández, DEVON) Neuropathy Bilateral feet History of COVID-19 03/05/2024 - positive home 03/13/2024 - negative Insulin dependent type 2 diabetes mellitus Right lumbar radiculopathy Hx of gout Diverticular disease Per records, patient denies Xerostomia "Dry Mouth" Dry eyes, bilateral Asthma-COPD overlap syndrome Sleep apnea No device Spinal stenosis Chronic back pain Degenerative disc disease Osteoarthritis GERD (gastroesophageal reflux disease) Myocardial Infarction NSTEMI CABG x4 (2015) Follows with Dr. Madden Chronic obstructive pulmonary disease Surgical History History of coronary artery bypass graft CABG x4 (2015) History of cardiac cath 2016 > CABG 1999- no stents S/P epidural steroid injection Multiple - Dr. Marr History of esophagogastroduodenoscopy (EGD) Fusion of spine C4-6 (2018), "ROM limited" History of colonoscopy History of tooth extraction Family History Brother Family history of diabetes mellitus Other Allergies Asthma Diabetes Heart disease No family history of adverse response to anesthesia Denies family history of Tuberculosis Emphysema, unspecified Lung disease Cancer Social History Smoking Status: Current every day smoker Tobacco Type: Cigarettes Age Started Using Tobacco: 15; packs per day: 1; Cigarettes Per Day: 5 cigs/day; Second Hand Exposure: No; Do You Dip or Chew Tobacco: No; Tobacco Cessation Education Requested by Patient: No Hx Alcohol Use: No Hx Substance Use: No Preferred Language: Malawian Communication Ability: Effective Adjuster Arbitrator Required: No Beliefs That Will Affect Care: None Current Living Situation: Spouse Other Information That Helps Us Care for You: No Feels Safe at Home: Yes Safety Concerns: Feels Safe At This Time Assistive Devices: Cane and Glasses Physical Exam Physical Exam: Patient is alert and oriented heart regular in rhythm Lungs clear Results & Data Results & Data Vital Signs (Past 12 Hours) Vital Signs Temp Pulse Resp BP Pulse Ox O2 Del Method 04/28/24 06:46 36.7 C 65 20 132/83 93 Room Air
[2024-04-28] MEDS: ceFAZolin 2000MG 2,000 MG/15 ML SYR IV SCH ×2 (07:50→17:09)
[2024-04-28] MEDS ORDERED: SUGAMMADEX SODIUM 200 MG/2 ML VIAL IV ONE (08:22)
[2024-04-28] MEDS: ceFAZolin 330 MG/ML 1 GM VIAL ONE (08:38)
[2024-04-28] MEDS: FLOSEAL HEMOSTATIC MATRIX 10ML TOP ONE (09:43)
--- NOTE | 2024-04-28 09:49 | Operative Report ---
Post Operative Report Pre & Post Diagnosis Operation Date: 04/28/24 07:45 Pre-Op Diagnosis: Cervical spinal stenosis with radiculopathy Post-Op Diagnosis: Same I identified the patient and participated in the time-out.: Yes Procedure Operation Date: 04/28/24 07:45 Actual Procedures #1 removal of anterior cervical plate C3-C5. #2 exploration of fusion C3-C5. #3 anterior cervical discectomy C5-C6 C6-C7 with bilateral foraminotomies. #4 anterior cervical arthrodesis C5-C6 C6-C7. #5 placement of Spira 7 mm cage filled with os design bone graft at C5-C6 C6-C7. #6 placement Z plate and screws C3-C7. Surgeon Yuri Ann, Geodetic Survey Director Pia Lay Estimated Blood Loss 10 Findings Consistent with Post-Op Diagnosis Specimens None Indications This is a 63-year-old male presents problems diagnosis of failed course of nonoperative care is here for surgical invention. Description of Procedure Patient was met with identified informed consent obtained. Patient was then taken to the operative suite underwent intubation placed on the Wayne table with a head Mack head bone grinder. All bony prominences well-padded eyes inspected to ensure no external precipice spinal. This point the anterior cervical spine was prepped and draped no sterile fashion. With the assistance of fluoroscopy identified the C3-C7 levels. A longitudinal incision was placed on the right anterior aspect of the cervical spine from C3-C6. Blunt dissection with assistance of bipolar electrocautery is then performed down to and exposing the anterior cervical spine from C3-C7. I then proceeded to move the hardware and plate at C3 to see 5. Fusion mass was explored noted to be intact. Self- retaining was placed. And performed a complete discectomy of C5-C6 out to the uncovertebral joints bilaterally. Sandwich distracting pins utilized to assist in visualization. Removed all posterior annular fibers longitudinal limit bilateral foraminotomies performed. Endplates burred to subcortical bleeding bone and a 7 mm Spira cage filled with os designed tapped into position. Then proceeded to C6-C7. Again complete discectomy performed up to the uncovertebral notch bilaterally. Sandwich distraction pins again utilized. Removed all posterior annular fibers longitudinal ligament bilateral foraminotomies performed and a 7 mm Spira filled with os design bone graft tapped into position. Distracting apparatus was removed all anterior osteophytes burred to a smooth cortical surface and as Z plate and screws applied with the assistance of fluoroscopy. Incision was then copiously irrigated explored to ensure no damage to surrounding structures remaining bleeding. 10 round DAKOTA drain inserted. The incision was then closed with 2 Vicryl in the fascia and 4 Monocryl for final skin closure. Steri-Strips sterile dressing placed. Patient waken taken to PACU in stable condition. Please note spinal cord monitoring was utilized after procedure no changes noted. Pia Lay was present at the entire surgery and brought the patient positioning complex portion of the surgery and final skin closure. Im ordering 10 grams of Triple [place] Collagen Powder ([employer] [id number]) to treat an incision wound that was caused by a spine procedure. The incision is approximately 2 cm(W) x 4 cm(L) into the joint (D) in size and is a full thickness wound. Triple [place] collagen comes in 1 gram packets so 10 packets were ordered. Given the size of the wound, with light to moderate exudate I chose to order a 10 day supply. The patient will be provided instructions for proper application of the collagen wound kit. The patient will be asked to apply the collagen powder daily and then cover it with sterile d ressings dispensed. Collagen was selected as I expect the collagen to attract monocytes and fibroblasts, act as a sacrificial substrate for MMPs, and ultimately proved a matrix for tissue and vessel growth. The collagen will act as a primary dressing in this scenario. It is medically necessary for proper healing of these wounds to improve bioavailability and contact with each wound surface, this is also to help prevent infection of wounds and promote healing ultimately leading to a better healing outcome and limit the risk of infection. I attest to the content of the Intraoperative Record and any orders documented therein. Any exceptions are noted below.
[2024-04-28] MEDS: HYDROmorphone INJ 1 MG/ML SYRINGE IV PRN ×2 (10:29→12:29)
--- NOTE | 2024-04-28 11:08 | Anesthesiology Progress Note ---
Date of Service April 28, 2024 Anesthesia Post Procedure Vital Signs Vital Signs: Temp Pulse Pulse Resp BP Pulse Ox O2 Del Method 04/28/24 10:55 57 L 14 136/81 96 Nasal Cannula 04/28/24 10:45 60 14 132/73 95 Nasal Cannula 04/28/24 10:35 60 18 151/88 H 95 Room Air 04/28/24 10:25 61 16 138/84 98 Oxymask 04/28/24 10:15 58 L 16 114/58 L 96 Oxymask 04/28/24 10:07 36.4 C L 58 L 16 105/69 93 Oxymask 04/28/24 06:46 36.7 C 65 20 132/83 93 Room Air O2 Flow Rate 04/28/24 10:55 4 04/28/24 10:45 4 04/28/24 10:35 04/28/24 10:25 10 04/28/24 10:15 10 04/28/24 10:07 10 04/28/24 06:46 Pain Intensity Posterior Neck: Pain Intensity: 6 Transfer of Care Handoff Completed per policy Notes Mental Status: alert / awake / arousable Patient Amnestic to Procedure: Yes Nausea / Vomiting: adequately controlled Pain: adequately controlled Airway Patency, RR, SpO2: stable & adequate BP & HR: stable & adequate Hydration State: stable & adequate Anesthetic Complications: no major complications apparent
[2024-04-28] MEDS ORDERED: ePHEDrine sulfate 50 MG/5 ML SYR ONE (11:30)
--- NOTE | 2024-04-28 11:44 | Fluoroscopy Report ---
INTRAOPERATIVE RADIOGRAPHS CLINICAL HISTORY: Cervical spinal fusion. Fluoro time: 11 seconds Ka,r: 2.07 mGy FINDINGS: 3 spot fluoroscopic views of the cervical spine are presented. There has been corpectomy at C4 with anterior spinal fusion seen at C3-C7. There is multilevel discectomy change. A screw fragmen t is noted in the body of C5. An endotracheal tube is in place. IMPRESSION: Intraoperative images from cervical spine fusion surgery as above. See operative report f or detailed findings. Electronically signed by: Aleksandr Rivas M.D. 04/28/2024 11:42 AM
[2024-04-28] MEDS ORDERED: guaiFENesin 600 MG TABCR PO PRN (11:49)
[2024-04-28] MEDS ORDERED: PHARMACY GLYCEMIC MGMT CONSULT PRN (11:49)
[2024-04-28] MEDS ORDERED: ACETAMINOPHEN 500 MG TAB PO PRN (11:49)
[2024-04-28] MEDS ORDERED: FAMOTIDINE 20 MG TAB PO PRN (11:49)
[2024-04-28] MEDS ORDERED: ONDANSETRON INJ 2 MG/ML 2 ML VIAL IV PRN (11:49)
[2024-04-28] MEDS ORDERED: MAGNESIUM HYDROXIDE SUSP 30 ML UDC PO PRN (11:49)
[2024-04-28] MEDS ORDERED: traMADol HCL 50 MG TABLET PO PRN (11:49)
[2024-04-28] MEDS ORDERED: ACETAMINOPHEN 1,000 MG/100 ML VIAL IV PRN (11:49)
[2024-04-28] MEDS ORDERED: PROMETHAZINE 12.5 MG/50.5 ML BAG IV PRN (11:49)
[2024-04-28] MEDS ORDERED: LORazepam 2 MG/1 ML VIAL IV PRN (11:49)
[2024-04-28] MEDS ORDERED: DO NOT ADMINISTER FLU VACCINE PRN (11:49)
[2024-04-28] MEDS ORDERED: DO NOT ADMINISTER PNEUMOCOCCAL VACCINE PRN (11:49)
[2024-04-28] MEDS ORDERED: bisacodyL 10 MG SUPP PR PRN (11:49)
[2024-04-28] MEDS ORDERED: hydrOXYzine HCl 25 MG TAB PO PRN (11:49)
[2024-04-28] MEDS ORDERED: ALBUTEROL HFA 8 GM INHALER INH PRN (11:49)
[2024-04-28] MEDS ORDERED: dexAMETHasone 8 MG in SYRINGE 0 ML IV PRN (11:49)
[2024-04-28] MEDS ORDERED: ONDANSETRON 4 MG OD TAB PO PRN (11:49)
[2024-04-28] MEDS ORDERED: RACEPINEPHRINE 2.25% NEBU SOLN 0.5 ML VIAL INH PRN (11:49)
[2024-04-28] MEDS ORDERED: diphenhydrAMINE Capsule 25 MG CAP PO PRN (11:49)
[2024-04-28] MEDS ORDERED: LORazepam 0.5 MG TAB PO PRN (11:49)
[2024-04-28] MEDS ORDERED: ALUMINUM/MAGNESIUM SUSP 30 ML UDC PO PRN (11:49)
[2024-04-28] MEDS ORDERED: SOD PHOSPHATE/SOD BIPHOSPHATE ENEMA 132 ML BTL PR PRN (11:49)
[2024-04-28] MEDS ORDERED: METOCLOPRAMIDE HCL INJ 5 MG/ML 2 ML VIAL IV PRN (11:49)
[2024-04-28] MEDS ORDERED: NALOXONE HCL 0.4 MG/1 ML VIAL/CARP IV PRN (11:49)
[2024-04-28] MEDS ORDERED: HYDROmorphone INJ 0.5 MG/0.5 ML SYR IV PRN (11:49)
[2024-04-28] MEDS ORDERED: CETIRIZINE HCL 10 MG TABLET PO PRN (12:20)
[2024-04-28] MEDS: LACTATED RINGER'S 1,000 ML IV SCH (12:30)
[2024-04-28] MEDS: dexAMETHasone 6 MG in SYRINGE 0 ML IV SCH (13:09)
[2024-04-28] MEDS ORDERED: DEXTROSE 50% 50 ML SYRINGE IV PRN (13:15)
[2024-04-28] MEDS ORDERED: GLUCAGON FOR INJ 1 MG VIAL SQ PRN (13:15)
[2024-04-28] MEDS ORDERED: CARBOHYDRATES FOR HYPOGLYCEMIA PO PRN (13:15)
[2024-04-28] MEDS ORDERED: GLUCOSE 40% GEL 15 GM TUBE PO PRN (13:15)
[2024-04-28] MEDS ORDERED: GLUCOSE 10 TAB/TUBE PO PRN (13:15)
[2024-04-28] MEDS: INSULIN ASPART PER UNIT CHARGE SC SCH (13:31)
--- NOTE | 2024-04-28 13:38 | Hospitalist Consultation ---
Date of Consultation April 28, 2024 Assessment & Plan (1) Cervical radiculopathy: This is a 63-year-old gentleman with past medical history of severe multivessel CAD status post CABG x 4 vessels in 2016, hypertension, dyslipidemia, COPD, asthma, GERD who presented to the hospital today and underwent a C5-C7 anterior cervical discectomy and fusion hardware removal of C3-C5 with Dr. Ann. Pain management, bowel regimen, diet, DVT prophylaxis per primary team Bladder scan as neededpatient reports no urination since his operation thus far antiemetics prn Incentive spirometry Per patient, plans for discharge tomorrow AM CBC and BMP (2) Type 2 diabetes mellitus: Hemoglobin A1c 04/07/2024: 5.9% Typically on 8 units Lantus daily as outpatient Would recommend resuming this when patient's diet returns to normal Goal blood sugar range: 110-140 Carb ratio 7 Correction factor 25 Plan Chronic conditions: Hypertension: Hold losartan in a.m., continue metoprolol COPD/asthma: Singulair, albuterol as needed Recommend patient bring in Trelegy Recommend smoking cessation Dyslipidemia: Rosuvastatin GERD: Pantoprazole Thank you for this consult. We will continue to follow along. Please reach out with questions or concerns. Supervising Physician Co-Signing Physician Notes Patient was seen and examined independently I discussed the case with Chantal BRADEN I reviewed pertinent past medical social family history and also the plan of care and agree with the plan of care. Patient was seen postoperatively he was eating his meal. His pain was controlled. We discussed his antihypertensives and the fact we may need to hold his 1 medication in the morning his losartan if his blood pressure is low. He has no chest pain Patient's coronary artery disease has been stable postoperatively we will continue metoprolol and atorvastatin. Surgery has restarted aspirin backup. With guarded diabetes he is on a diabetic diet with sliding scale insulin. Regarding his chronic respiratory conditions listed his COPD/asthma these are stable continue Singulair and as needed albuterol with Trelegy use he brought in from home Continue Protonix for GERD prophylaxis Any exceptions will be noted below History of Present Illness Attending Physician: Yuri Ann, DO History of Present Illness This is a 63-year-old gentleman with past medical history of severe multivessel CAD status post CABG x 4 vessels in 2016, hypertension, dyslipidemia, COPD, asthma, GERD who presented to the hospital today and underwent a C5-C7 anterior cervical discectomy and fusion hardware removal of C3-C5 with Dr. Ann. The patient was seen and examined at bedside. present. Patient reports that his pain has been controlled relatively well since his operation today. He states that he has not urinated or passed gas thus far. He states that he has no history of urinary issues or prostate issues. At time of encounter he was resting comfortably in bed and on 2 L of oxygen via nasal cannula. Patient states he does not use oxygen at home. His history of COPD and asthma is controlled by his albuterol inhaler as needed and Trelegy. Patient states that he did take his Trelegy inhaler this morning. He states he does not have it with him although he is anticipating to be discharged home tomorrow. Patient states he still smokes about 5 to 7 cigarettes on a daily basis. His type 2 diabetes is managed with 8 units of Lantus daily. He is compliant with his medications on an outpatient basis. He denied any additional complaints. He denies any chest pain or shortness of breath. He denied any abdominal pain. He denied any nausea or vomiting. Allergies Allergy/AdvReac Type Severity Reaction Status Date / Time latex Allergy Intermediate Ear Verified 04/28/24 06:38 swelling, eye redness amoxicillin AdvReac Mild Nausea/Vomi Verified 04/28/24 06:38 ting hydrocodone AdvReac Mild Nausea/Vomi Verified 04/28/24 06:38 ting Home Medications Medication Instructions Recorded Confirmed Type aspirin 81 mg tablet,delayed 81 mg PO QAM #30 tabs 04/07/19 04/28/24 History release guaifenesin 600 mg tablet, 600 mg PO BID PRN congestion #60 10/30/20 04/28/24 Rx extended release 12 hr (Mucinex) tabs albuterol sulfate 90 mcg/actuation 2 puff inhalation Q6H PRN 02/06/21 04/28/24 Rx aerosol inhaler (Ventolin HFA) Shortness Of Breath Or Wheezing #18 grams cyclobenzaprine 5 mg tablet 5 mg PO DAILY PRN Neck Muscle Spasm 04/03/23 04/28/24 History metoprolol tartrate 100 mg tablet 100 mg PO QAM 04/03/23 04/28/24 History insulin glargine 100 unit/mL (3 8 unit subcut QAM 05/09/23 04/28/24 History mL) subcutaneous pen (Basaglar KwikPen U-100 Insulin) montelukast 10 mg tablet 10 mg PO QAM #90 tabs 01/05/24 04/28/24 Rx (Singulair) losartan 50 mg tablet 50 mg PO QAM #90 tabs 01/06/24 04/28/24 Rx rosuvastatin 20 mg tablet 20 mg PO QAM #90 tabs 01/06/24 04/28/24 Rx ascorbic acid (vitamin C) 1,000 mg 1 g PO QAM 03/30/24 04/28/24 History tablet (Vitamin C) cholecalciferol (vitamin D3) 25 25 mcg PO QAM 03/30/24 04/28/24 History mcg (1,000 unit) tablet (Vitamin D3) docusate sodium 100 mg tablet 100 mg PO QAM 03/30/24 04/28/24 History (Stool Softener) gabapentin 300 mg capsule 300 mg PO TID 03/30/24 04/28/24 History omeprazole 40 mg capsule,delayed 40 mg PO QAM 03/30/24 04/28/24 History release fluticasone fur. 100 mcg-umeclid 1 inh inhalation QAM #1 inhaler 04/12/24 04/28/24 Rx 62.5 mcg-vilant 25 mcg inhalat.powder (Trelegy Ellipta) levocetirizine 5 mg tablet (Xyzal) 5 mg PO DAILY PRN allergy symptoms 04/28/24 04/28/24 History oxycodone 5 mg tablet 5 mg PO Q6H PRN pain #30 tabs 04/28/24 Rx tramadol 50 mg tablet 50 mg PO Q6H PRN pain, moderate 04/28/24 Rx #30 tabs Patient History Medical History (Updated 04/28/24 @ 13:37 by Chantal Venegas PA-C) Neuropathy Bilateral feet History of COVID-19 03/05/2024 - positive home 03/13/2024 - negative Insulin dependent type 2 diabetes mellitus Right lumbar radiculopathy Hx of gout Diverticular disease Per records, patient denies Xerostomia "Dry Mouth" Dry eyes, bilateral Asthma-COPD overlap syndrome Sleep apnea No device Spinal stenosis Chronic back pain Degenerative disc disease Osteoarthritis GERD (gastroesophageal reflux disease) Myocardial Infarction NSTEMI CABG x4 (2016) Follows with Dr. Madden Chronic obstructive pulmonary disease Surgical History History of coronary artery bypass graft CABG x4 (2016) History of cardiac cath 2016 > CABG 2000- no stents S/P epidural steroid injection Multiple - Dr. Marr History of esophagogastroduodenoscopy (EGD) Fusion of spine C4-6 (2018), "ROM limited" History of colonoscopy History of tooth extraction Family History Brother Family history of diabetes mellitus Other Allergies Asthma Diabetes Heart disease No family history of adverse response to anesthesia Denies family history of Tuberculosis Emphysema, unspecified Lung disease Cancer Social History Smoking Status: Current every day smoker Tobacco Type: Cigarettes Age Started Using Tobacco: 15; packs per day: 1; Cigarettes Per Day: 5 cigs/day; Second Hand Exposure: No; Do You Dip or Chew Tobacco: No; Tobacco Cessation Education Requested by Patient: No Hx Alcohol Use: No Hx Substance Use: No Preferred Language: [place] Communication Ability: Effective Battery Container Tester Aluminum Required: No Beliefs That Will Affect Care: None Current Living Situation: Spouse Other Information That Helps Us Care for You: No Feels Safe at Home: Yes Safety Concerns: Feels Safe At This Time Assistive Devices: Cane and Glasses Physical Exam Constitutional: WD/WN, vitals as above Eyes: PERRL, conjunctivae normal, anicteric sclerae Neck: neck brace Respiratory: normal respiratory effort, lungs clear to auscultation Cardiovascular: RRR, no murmur, no edema Skin: no rashes, warm and dry Psychiatric: A+Ox3, euthymic affect Results & Data Results & Data Vital Signs (Past 12 Hours) Vital Signs Temp Pulse Pulse Pulse Resp BP Pulse Ox 04/28/24 12:40 36.4 C L 59 L 16 123/79 97 04/28/24 12:16 56 L 16 95 04/28/24 12:15 36.5 C 55 L 16 126/78 96 04/28/24 11:45 04/28/24 11:45 36.4 C L 59 L 14 138/83 93 04/28/24 11:30 60 20 129/87 94 04/28/24 11:15 59 L 16 138/84 96 04/28/24 11:05 36.4 C L 61 16 136/88 96 04/28/24 10:55 57 L 14 136/81 96 04/28/24 10:45 60 14 132/73 95 04/28/24 10:35 60 18 151/88 H 95 04/28/24 10:25 61 16 138/84 98 04/28/24 10:15 58 L 16 114/58 L 96 04/28/24 10:07 36.4 C L 58 L 16 105/69 93 04/28/24 06:46 36.7 C 65 20 132/83 93 Pulse Ox O2 Del Method O2 Del Method O2 Flow Rate O2 Flow Rate 04/28/24 12:40 Nasal Cannula 2 04/28/24 12:16 Nasal Cannula 2 04/28/24 12:15 Nasal Cannula 2 04/28/24 11:45 93 Nasal Cannula 2 04/28/24 11:45 Nasal Cannula 2 04/28/24 11:30 Nasal Cannula 2 04/28/24 11:15 Nasal Cannula 2 04/28/24 11:05 Nasal Cannula 2 04/28/24 10:55 Nasal Cannula 4 04/28/24 10:45 Nasal Cannula 4 04/28/24 10:35 Room Air 04/28/24 10:25 Oxymask 10 04/28/24 10:15 Oxymask 10 04/28/24 10:07 Oxymask 10 04/28/24 06:46 Room Air PG Care Time/CCT Total # of Minutes Spent Total Time Spent with Patient: Total time spent is greater than 50% in coordination of care (as documented) at patient's floor/unit and/or counseling patient: Coding Level of Care Code 32174 IN/OBS CONSULT LVL 3,45M Diagnoses Cervical radiculopathy M54.12 Type 2 diabetes mellitus E11.9 Diabetes mellitus penitentiary insulin use: with penitentiary use (2) Type 2 diabetes mellitus Diabetes mellitus terminal worker insulin use: with terminal worker use
[2024-04-28] MEDS: LANTUS PER UNIT CHARGE SC SCH ×2 (14:00→22:18)
[2024-04-28] MEDS: oxyCODONE HCL IR 5 MG TAB (IMMEDIATE RELEASE) PO PRN (14:00)
--- NOTE | 2024-04-28 14:21 | Pharmacy Report ---
Pharmacy Glycemic Short Note 2 - Date of Service April 28, 2024 - Glycemic Short BSG Results (Last 24 hours): 04/28/24 04/28/24 04/28/24 06:27 10:11 12:24 POC Glucose 114 H 129 H 131 H OUTPATIENT ANTIDIABETIC REGIMEN: * Basaglar 8 units q AM HbA1c: 5.9% on 04/07/24 ASSESSMENT: * 63 year old male s/p discectomy and fusion hardware removal. Pharmacy was consulted for glycemic monitoring post op. * Patient started on dexamethasone 6mg iv q 8 hours x 3 and clear liquid diet has been ordered. * 10 units of basal insulin was ordered to be given x 1 and this evening a basal scale is ordered (0-15 units). * Bolus insulin started with lunch since steroids have been started. PLAN FOR INPATIENT GLYCEMIC CONTROL: * Basal insulin * Lantus 10 units SQ x 1 then per scale this evening ( BSG < 110 0 units, BSG 110-180 7 units, BSG > 180 15 units) * Bolus insulin * NovoLog per scale ACHS or Q6hrs while NPO * Goal Range: Low 110 mg/dL - High 140 mg/dL * Correction Factor: 25 mg/dL/unit * Nutritional / Prandial insulin per carb ratio of 1 unit per 7 grams CHO consumed
[2024-04-28] MEDS: DOCUSATE SODIUM/SENNA 50/8.6MG TAB PO SCH (22:19)
[2024-04-29] MEDS: INSULIN ASPART PER UNIT CHARGE SC SCH (00:41)
[2024-04-29 06:09] LABS: Hematocrit (blood only) 45.1 % (42.0-52.0); Hemoglobin 15.2 g/dl (14.0-18.0); Mean Corpuscular Hemoglobin 31.1 pg (25.0-34.0); Mean Corpuscular Hgb Conc 33.7 g/dL (32.0-36.0); Mean Corpuscular Volume 92.4 fL (80.0-100.0); Mean Platelet Volume 9.5 fL (9.4-12.4); Platelet Count 239 K/uL (130-400); RDW Coefficient of Variation 12.2 % (11.5-14.5); RDW Standard Deviation 41.5 fL (36.4-46.3); Red Blood Count 4.88 M/uL (4.70-6.10); White Blood Count 23.12 K/ul (4.8-10.8)
[2024-04-29 06:29] LABS: BUN Creatinine Ratio 12.8 (10-20); Creatinine Clr Calc Pharmacy 91.8 ml/min; Potassium 4.3 mmol/L (3.5-5.1)
[2024-04-29] MEDS: POLYETHYLENE (MIRALAX) 17 GM PACK PO SCH (06:31)
[2024-04-29] MEDS: LOSARTAN POTASSIUM 50 MG TAB PO SCH (08:27)
[2024-04-29] MEDS: ASCORBIC ACID 500 MG TAB PO SCH (08:27)
[2024-04-29] MEDS: PANTOprazole 40 MG TAB PO SCH (08:28)
[2024-04-29] MEDS: METOPROLOL TARTRATE 100 MG TAB PO SCH (08:28)
[2024-04-29] MEDS: MONTELUKAST SODIUM 10 MG TABLET PO SCH (08:29)
[2024-04-29] MEDS: ASPIRIN 81 MG ECTAB PO SCH (08:30)
[2024-04-29] MEDS: CHOLECALCIFEROL 25 MCG (1000 UNITS) TAB PO SCH (08:30)
[2024-04-29] MEDS: ROSUVASTATIN CALCIUM 20 MG TAB PO SCH (08:30)
--- NOTE | 2024-04-29 08:37 | Discharge Summary ---
Date of Service April 29, 2024 Admission HPI Per Admitting Provider This is a 63-year-old male with residual chronic persistent neck and arm pain after failing course of nonoperative care is here for surgical invention. Principal Diagnosis Cervical spinal stenosis with radiculopathy Discharge Data Allergies Allergy/AdvReac Type Severity Reaction Status Date / Time latex Allergy Intermediate Ear Verified 04/28/24 06:38 swelling, eye redness amoxicillin AdvReac Mild Nausea/Vomi Verified 04/28/24 06:38 ting hydrocodone AdvReac Mild Nausea/Vomi Verified 04/28/24 06:38 ting Consultations 04/28/24 11:49 Consult Hospitalist Routine Procedures Performed Operation Date: 04/28/24 07:45 Actual Procedures p C5-C7 Anterior Cervical Discectomy and Fusion, Spinal Cord Monitoring(Not Applicable) - Yuri Ann DO Ordered Studies 04/28/24 07:45 FL cervical 2-3V Routine Hospital Course (1) Cervical radiculopathy: Patient underwent anterior cervical discectomy fusion tolerated as well as taken orthopedic for postoperative. Postoperatively he is up and ambulating. Good strength testing. Swallowing well. No hoarseness. DAKOTA drain decreasing appropriately. Subsidy discharged home. Discharge orders instructions from the chart for further review. Total Time Total Time Spent Total Time Spent (In Minutes): 20 minutes Discharge Plan Discharge Items Patient Disposition: Home - Self-Care Reason For Visit: Cervical Radicular Pain, Foraminal Stenosis of Cer Discharge Diagnosis: Cervical spinal stenosis with radiculopathy Activity: As commented below Non-emergency contact: Primary Care Provider Call non-emergency contact if: you have any medication questions Follow-up/Referrals: Kenan Viveros MD [Primary Care Provider] - Diet: Regular Addtl Attending Provider Instructions: ACTIVITY RECOMMENDATIONS: SELF CARE INSTRUCTIONS AFTER CERVICAL FUSIONS 1. No smoking. Smoking drastically decreases the chance of a solid fusion. 2. No bending, lifting more than 5 pounds, or twisting (roll like a log when turning in bed). 3. You may shower 3 days after surgery. Thoroughly dry wound. Do not soak in the tub. 4. Cervical collar: Must be worn at all times including sleeping. You may remove the brace only to bath, eat and if you are sitting in a recliner. 5. Please walk as much as you can for exercise. Gradually increase the distance that you walk as your endurance increases. SPECIAL CARE INSTRUCTIONS: VERY IMPORTANT TO READ AND REVIEW A. Do not take any anti-inflammatory medications (i.e. Indocin, Advil, Aspirin, Naprosyn, Aleve, Motrin, etc.) as these may inhibit the chance of a solid fusion. Tylenol is okay to take. B. Your surgical incision has been closed with a cosmetic suture under the skin that will dissolve in about 6 weeks. In 14 days, you can use a pair of clean scissors and cut the suture that is left outside of the skin at the ends of your incision. C. Complications are uncommon, but please contact us if you have any signs or symptoms of: 1. wound infection (fever higher than 102.5 degrees F, redness, separation of wound, drainage, or increasing pain from the incision) 2. blood clots in legs (pain, swelling, redness and warmth in legs) 3. urinary tract infection (fever higher than 102.5 degrees, burning upon urination or increased frequency of urination) 4. nerve problems (inability to walk on your toes or heels, numbness, loss of bowel or bladder control) 5. any other symptoms that concern you. D. Please call the office at if you have any concerns or questions about your operation or recovery. MANAGING PAIN AFTER SPINAL SURGERY 1. Narcotic medication is intended for short-term use and will be provided for surgical pain. Surgical pain usually lasts for a period of 4-6 weeks. Narcotic medication includes Percocet, Vicodin, Darvocet, Tylenol #3 or Lortab. 2. Longer-term pain is more appropriately treated with non-narcotic medication such as Tylenol ES. 3. Muscle spasm is not appropriately treated with narcotics. Muscle relaxers such as Soma, Flexeril or Skelaxin can be used along with Tylenol ES. 4. Remember that we all live with some "aches and pains". This is not unusual or uncommon after an injury or as we get older. 5. We will provide appropriate medication within the normal guidelines of their prescribed use. We will also be very cautious and aware of potential abuse and extended duration of patients' medication needs. 6. Please allow 2-3 days to process refills. Prescriptions will not be mailed but must be picked up at the office. FOLLOW UP VISIT: Keep your scheduled follow-up appointment. Any questions, please call the office at . Pending Studies at Discharge: No Stand-Alone Forms: My [facility], Smoking Cessation Medications and DC Order Prescriptions: New tramadol 50 mg tablet 50 mg PO Q6H PRN (Reason: pain, moderate) Qty: 30 0RF oxycodone 5 mg tablet 5 mg PO Q6H PRN (Reason: pain) Qty: 30 0RF Continued insulin glargine [Basaglar KwikPen U-100 Insulin] 100 unit/mL (3 mL) insulin pen 8 unit subcut QAM albuterol sulfate [Ventolin HFA] 90 mcg/actuation HFA aerosol inhaler 2 puff INHALATION Q6H PRN (Reason: Shortness Of Breath Or Wheezing) Qty: 18 3RF montelukast [Singulair] 10 mg tablet 10 mg PO QAM Qty: 90 2RF losartan 50 mg tablet 50 mg PO QAM Qty: 90 3RF rosuvastatin 20 mg tablet 20 mg PO QAM Qty: 90 3RF Trelegy Ellipta 100-62.5-25 mcg blister with device 1 inh inhalation QAM Qty: 1 3RF guaifenesin [Mucinex] 600 mg tablet extended release 12hr 600 mg PO BID PRN (Reason: congestion) Qty: 60 1RF Rx Instructions: Take 1 tab p.o. twice a day for 7 days and then as needed metoprolol tartrate 100 mg tablet 100 mg PO QAM cyclobenzaprine 5 mg tablet 5 mg PO DAILY PRN (Reason: Neck Muscle Spasm) aspirin 81 mg tablet,delayed release (DR/EC) 81 mg PO QAM Qty: 30 omeprazole 40 mg capsule,delayed release(DR/EC) 40 mg PO QAM gabapentin 300 mg capsule 300 mg PO TID Rx Instructions: 300 mg PO QHS x 1 week; 1 cap PO BID x 1 week; then 1 cap PO TID; ascorbic acid (vitamin C) [Vitamin C] 1,000 mg Tablet 1 g PO QAM docusate sodium [Stool Softener] 100 mg Tablet 100 mg PO QAM cholecalciferol (vitamin D3) [Vitamin D3] 25 mcg (1,000 unit) Tablet 25 mcg PO QAM levocetirizine [Xyzal] 5 mg tablet 5 mg PO DAILY PRN (Reason: allergy symptoms) Rx Instructions: Take daily for 10 days then PRN Discharge Orders: Discharge Order (Routine); Ordered 04/29/24 Ordered By: Yuri Ann Admission Data Admit Date/Time: 04/28/24 09:52 Attending Provider: Yuri Ann Admit Provider: Yuri Ann Primary Care Provider: Kenan Viveros Other Providers: Rodriguez Quinones
[2024-04-29] MEDS: FLUTICASONE FUROATE 100MCG 14 PUFFS/INHALER INH SCH (08:44)
[2024-04-29] MEDS: UMECLIDINIUM/VILANTEROL 62.5/25MCG 7 PUFFS/INHALER INH SCH (08:45)
[2024-04-29] MEDS ORDERED: NON-FORMULARY MEDICATION (Fluticasone-Umeclidin-Vilanter [Trelegy Ellipta] 100-62.5-25 mcg INH SCH (09:00)
[2024-04-29 12:40] VITALS: BP 128/62; PULSE 68; RESP 16; TEMP 97.5; O2SAT 96
== END 2024-04-29 11:54 | disposition home or self-care (01) ==
LOC: ASU 06:07 → 3E 06:07